=== PATIENT | female | born 1955 | race Caucasian/White ===

== ENCOUNTER 2024-10-02 08:16 | Day surgery (SDC) | payer MEDICARE, OTHER, SELFPAY ==
--- OUTSIDE RECORDS SUMMARY | 2024-09-26 23:59 | XMS_ITS | Continuity of Care Document ---
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 Name Role Phone Stephen TATUM, Cheyenne Gonzalez Primary Care Physician Encounter [facility] Date(s): 08/27/24 - 09/26/24 [facility] Care [address] [place] [address]- Encounter Type: Triage Allergies, Adverse Reactions, Alerts Substance Criticality Severity Reaction Reaction Severity Status ciprofloxacin unsure Active meloxicam effected kidney function Active Adhesive Bandage sin irritation/redness Active Immunizations Given and Recorded Vaccine Date Status Refusal Reason pneumococcal 23-valent vaccine 08/26/23 Given pneumococcal 23-valent vaccine 04/27/17 Given SARS-CoV-2 mRNA ([id number]) vax 1 11/01/22 Recorded SARS-CoV-2 mRNA ([id number]) vax 05/29/21 Recorded influenza virus vaccine, inactivated 11/01/22 Jim rded influenza virus vaccine, inactivated 10/28/21 Jim rded influenza virus vaccine, inactivated 11/09/20 Jim rded influenza virus vaccine, inactivated 11/01/19 Jim rded influenza virus vaccine, inactivated 10/23/18 Jim rded influenza virus vaccine, inactivated 10/21/17 Jim rded [id number] 12y+ bivalent booster vax 10/23/21 Recorded SARS-CoV-2 (COVID-19) mRNA BNT-162b2 vac 11/09/20 Recorded SARS-CoV-2 (COVID-19) mRNA BNT-162b2 vac 04/21/20 Recorded SARS-CoV-2 (COVID-19) mRNA BNT-162b2 vac 04/04/20 Recorded zoster vaccine, inactivated 09/29/17 Recorded zoster vaccine, inactivated 09/27/17 Recorded zoster vaccine, inactivated 05/11/17 Recorded tetanus/diphtheria/pertussis, acel(Tdap) 04/27/17 Given tetanus/diphtheria/pertussis, acel(Tdap) 08/29/07 Recorded Afluria (oldterm) 11/11/16 Given pneumococcal 13-valent vaccine 04/25/14 Recorded Zostavax (oldterm) 07/11/13 Given 1Result Comment: Dorota Patel done at pharmacy Medications ALPRAZolam 1 mg oral tablet 1 tablet = 1 mg, By Mouth, 2 times a day, for 30 days, dose decrease to what patient actually using, # 60 tablet, 6 Refills, Hard Stop 04/23/25 9:00:00 AM EDT, 09/25/24 9:00:00 AM EDT, Tablet, [facility]/pharmacy #[id number], 168, cm, 08/14/24 8:43:00 EDT, Height, 112.2, kg, 08/14/24 8:43:00 EDT, Dry Weight Start Date: 09/25/24 Stop Date: 04/23/25 Status: Ordered Quantity: 60.0 Unit: tablet Repeat number: 7 anastrozole 1 mg oral tablet 1 tablet, By Mouth, Daily, # 90 tablet, 2 Refills, Maintenance, 01/23/24 5:32:00 AM EST, [id number], 168, cm, 12/29/23 6:53:00 EST, Height, 124.6, kg, 12/29/23 6:53:00 EST, Dry Weight Start Date: 01/23/24 Status: Ordered Quantity: 90.0 Unit: tablet Repeat number: 1 Calcium 600 +D By Mouth, Daily, calcium 1200mg/Vit D3 1600 IU by mouth daily, 0 Refills, Maintenance, 05/15/24 3:43:00 PM EDT, Partial fill upon patient request if the prescription is for a schedule II opioid drug. Start Date: 05/15/24 Status: Ordered Repeat number: 1 Claritin 10 mg oral tablet 10 mg, 1, tablet, By Mouth, Daily, # 30 tablet, Refills 0, Maintenance, 07/13/23 10:04:00 AM EDT, Partial fill upon patient request if the prescription is for a schedule II opioid drug. Start Date: 07/13/23 Status: Ordered Quantity: 30.0 Unit: tablet Repeat number: 1 Compression Stockings surgical, knee high length 20-30 mm Hg, # 2 each, Refills 3, Tot. Refills 3, Maintenance, wear daily remove bedtime, 05/17/22 8:07:00 AM EDT, Supply Start Date: 05/17/22 Status: Ordered Quantity: 2.0 Unit: each Repeat number: 4 Compression Stockings surgical, thigh high length 20-30 mm Hg, # 2 each, Refills 3, Tot. Refills 3, Maintenance, wear daily remove bedtime, 05/17/22 8:11:00 AM EDT, Supply Start Date: 05/17/22 Status: Ordered Quantity: 2.0 Unit: each Repeat number: 4 Eliquis 5 mg oral tablet 1 tablet = 5 mg, By Mouth, 2 times a day, # 180 tablet, 3 Refills, Maintenance, 10/03/23 12:49:00 PMEDT, Tablet, [facility]/pharmacy #[id number], Partial fill upon patient request if the prescription is for a schedule II opioid drug., 167.7, cm, 09/09/23 14:37:00 EDT, Height, 120.2, kg, 09/06/23 8:56:00 EDT, Dry Weight Start Date: 10/03/23 Status: Ordered Quantity: 180.0 Unit: tablet Repeat number: 4 fluticasone 50 mcg/inh nasal spray See Instructions, USE 1 SPRAY IN EACH NOSTRIL TWICE A DAY, # 48 mL, 1 Refills, Maintenance, 09/21/24 11:18:00 AM EDT, [facility]/pharmacy #[id number], 90, USE 1 SPRAY IN EACH NOSTRIL TWICE A DAY, 168, cm, 08/14/24 8:43:00 EDT, Height, 112.2, kg, 08/14/24 8:43:00 EDT, Dry Weight Start Date: 09/21/24 Status: Ordered Quantity: 48.0 Unit: mL Repeat number: 2 Freestyle Lite Lancets See Instructions, # 100 each, Refills 2, Tot. Refills 2, Maintenance, Check blood sugar daily and PRN. Dx E11.9, 02/29/24 8:22:00 AM EST, Compound, 168, cm, 02/28/24 10:50:00 EST, Height, 124.6, kg, 12/29/23 6:53:00 EST, Dry Weight Start Date: 02/29/24 Status: Ordered Quantity: 100.0 Unit: each Repeat number: 3 Indications: Type 2 diabetes mellitus with hyperglycemia; Freestyle Lite Monitor See Instructions, # 1 each, Maintenance, Check blood sugar daily and PRN. Dx E11.9, 02/29/24 8:22:00AM EST, Compound, 168, cm, 02/28/24 10:50:00 EST, Height, 124.6, kg, 12/29/23 6:53:00 EST, Dry Weight Start Date: 02/29/24 Status: Ordered Quantity: 1.0 Unit: each Repeat number: 1 Indications: Type 2 diabetes mellitus with hyperglycemia; Freestyle Lite Test Strips See Instructions, # 100 each, Refills 2, Tot. Refills 2, Maintenance, Check blood sugar daily and PRN. Dx E11.9, 02/29/24 8:22:00 AM EST, Compound, 168, cm, 02/28/24 10:50:00 EST, Height, 124.6, kg, 12/29/23 6:53:00 EST, Dry Weight Start Date: 02/29/24 Status: Ordered Quantity: 100.0 Unit: each Repeat number: 3 Indications: Type 2 diabetes mellitus with hyperglycemia; hydrochlorothiazide 25 mg oral tablet 1, tablet, By Mouth, Daily, # 90 tablet, Refills 1, Maintenance, 04/12/24 11:43:00 AM EST, Route to Pharmacy Electronically, [id number], 168, cm, 03/29/24 12:40:00 EST, Height, 117.8, kg, 03/19/24 9:01:00 EST, Dry Weight Start Date: 04/12/24 Status: Ordered Quantity: 90.0 Unit: tablet Repeat number: 1 lisinopril 40 mg oral tablet 1 tablet, By Mouth, Daily, # 90 tablet, 1 Refills, Maintenance, 09/21/24 11:18:00 AM EDT, [facility]/pharmacy #[id number], 168, cm, 08/14/24 8:43:00 EDT, Height, 112.2, kg, 08/14/24 8:43:00 EDT, Dry Weight Start Date: 09/21/24 Status: Ordered Quantity: 90.0 Unit: tablet Repeat number: 2 melatonin 3 mg oral tablet, extended release 1 tablet = 3 mg, By Mouth, Daily at bedtime, PRN as needed for insomnia, 0 Refills, Maintenance, 05/15/24 3:45:00 PM EDT, ER Tablet, Partial fill upon patient request if the prescription is for a schedule II opioid drug. Start Date: 05/15/24 Status: Ordered Repeat number: 1 metFORMIN 500 mg oral tablet 2 tablet, By Mouth, 2 times a day, # 360 tablet, 1 Refills, Maintenance, 08/27/24 8:15:00 AM EDT, [facility]/pharmacy #[id number], 168, cm, 08/14/24 8:43:00 EDT, Height, 112.2, kg, 08/14/24 8:43:00 EDT, Dry Weight Start Date: 08/27/24 Status: Ordered Quantity: 360.0 Unit: tablet Repeat number: 2 Multivitamin By Mouth, Daily, 0 Refills, Maintenance, 07/13/23 10:04:00 AM EDT, Partial fill upon patient requestif the prescription is for a schedule II opioid drug. Start Date: 07/13/23 Status: Ordered Repeat number: 1 Ozempic 2 mg/1.5 mL (0.25 mg or 0.5 mg dose) subcutaneous solution = 0.5 mg, Subcutaneous Injection, Every week, rotate injection sites, # 4 each, 1 Refills, Maintenance, 06/06/24 2:12:00 PM EDT, Solution, [facility]/pharmacy #[id number], Partial fill upon patient request if the prescription is for a schedule II opioid drug., 0.5 mg Subcutaneous Injection Every week,Instr:rotate injection sites, 168, cm, 05/30/24 9:03:00 EDT, Height, 115.6, kg, 05/21/24 9:34:00 EDT, Dry Weight Start Date: 06/06/24 Status: Ordered Quantity: 4.0 Unit: each Repeat number: 2 Indications: Type 2 diabetes mellitus without complications; Ozempic 2 mg/3 mL (0.25 mg or 0.5 mg dose) subcutaneous solution See Instructions, 0.5 MG SUBCUTANEOUS INJECTION EVERY WEEK,INSTR:ROTATE INJECTION SITES, # 3 Unknown, 3 Refills, Maintenance, 08/31/24 12:07:00 PM EDT, [facility]/pharmacy #[id number], 168, cm, 08/14/24 8:43:00 EDT, Height, 112.2, kg, 08/14/24 8:43:00 EDT, Dry Weight Start Date: 08/31/24 Status: Ordered Quantity: 3.0 Unit: Unknown Repeat number: 4 pantoprazole 20 mg oral delayed release tablet 1 tablet, By Mouth, Daily, # 90 tablet, 1 Refills, Maintenance, 04/12/24 11:43:00 AM EST, 168, cm, 03/29/24 12:40:00 EST, Height, 117.8, kg, 03/19/24 9:01:00 EST, Dry Weight Start Date: 04/12/24 Status: Ordered Quantity: 90.0 Unit: tablet Repeat number: 1 Probiotic Formula By Mouth, Daily, 0 Refills, Maintenance, 07/19/23 12:07:00 PM EDT, Partial fill upon patient request if the prescription is for a schedule II opioid drug. Start Date: 07/19/23 Status: Ordered Repeat number: 1 psyllium - oral capsule 2 capsules, By Mouth, 2 times a day, 0 Refills, Maintenance, 07/13/23 10:05:00 AM EDT, Partial fill upon patient request if the prescription is for a schedule II opioid drug. Start Date: 07/13/23 Status: Ordered Repeat number: 1 sertraline 100 mg oral tablet 1 tablet = 100 mg, By Mouth, Daily, # 90 tablet, 1 Refills, Maintenance, 09/25/24 9:00:00 AM EDT, Tablet, [facility]/pharmacy #[id number], Partial fill upon patient request if the prescription is for a schedule IIopioid drug., 168, cm, 08/14/24 8:43:00 EDT, Height, 112.2, kg, 08/14/24 8:43:00 EDT, Dry Weight Start Date: 09/25/24 Stop Date: 03/24/25 Status: Ordered Quantity: 90.0 Unit: tablet Repeat number: 2 sertraline 25 mg oral tablet 1 tablet = 25 mg, By Mouth, Daily, # 90 tablet, 1 Refills, Maintenance, 09/25/24 9:00:00 AM EDT, Tablet, [facility]/pharmacy #[id number], Partial fill upon patient request if the prescription is for a schedule II opioid drug., 168, cm, 08/14/24 8:43:00 EDT, Height, 112.2, kg, 08/14/24 8:43:00 EDT, Dry Weight Start Date: 09/25/24 Stop Date: 03/24/25 Status: Ordered Quantity: 90.0 Unit: tablet Repeat number: 2 simvastatin 10 mg oral tablet 10 mg, 1, tablet, By Mouth, Daily at bedtime, # 30 tablet, Refills 11, Tot. Refills 11, Maintenance, 10/18/23 2:01:00 PM EDT, Route to Pharmacy Electronically, [facility]/pharmacy #[id number], Partial fill upon patient request if the prescription is for a schedule II opioid drug., 167.7, cm, 09/09/23 14:37:00 EDT, Height, 120.2, kg, 09/06/23 8:56:00 EDT, Dry Weight Start Date: 10/18/23 Status: Ordered Quantity: 30.0 Unit: tablet Repeat number: 12 traZODone 150 mg oral tablet 1 tablet = 150 mg, By Mouth, Daily at bedtime, # 90 tablet, 1 Refills, Maintenance, 09/25/24 9:03:00AM EDT, Tablet, [facility]/pharmacy #[id number], Partial fill upon patient request if the prescription is for a schedule II opioid drug., 168, cm, 08/14/24 8:43:00 EDT, Height, 112.2, kg, 08/14/24 8:43:00 EDT, Dry Weight Start Date: 09/25/24 Stop Date: 03/24/25 Status: Ordered Quantity: 90.0 Unit: tablet Repeat number: 2 Tylenol Arthritis Caplet 650 mg oral tablet, extended release 2 tablet = 1,300 mg, By Mouth, Every 8 hours, 0 Refills, Maintenance, 05/08/14 10:46:15 AM EDT Start Date: 05/08/14 Status: Ordered Repeat number: 1 verapamil 240 mg/12 hours oral tablet, extended release 1 tablet = 240 mg, By Mouth, Daily in AM, # 90 tablet, 1 Refills, Soft Stop, 04/12/24 11:45:00 PM EST, [id number], 168, cm, 03/29/24 12:40:00 EST, Height, 117.8, kg, 03/19/24 9:01:00 EST, Dry Weight Start Date: 04/12/24 Stop Date: 10/09/24 Status: Ordered Quantity: 90.0 Unit: tablet Repeat number: 2 Problem List Condition Confirmation Course Effective Dates Status H ealth Status Informant Allergic rhinitis Confirmed Active Anisocoria Confirmed Active Anxiety Confirmed Active Type 2 diabetes mellitus with both eyes affected by mild nonproliferative retinopathy without macular edema, without long-term current use of insulin Confirmed 06/12/24 Active Carcinoma of upper-outer quadrant of left breast in female, estrogen receptor negative Confirmed Active Breast disease Confirmed Active Diverticulitis Confirmed Active Chronic GERD Confirmed Active Heart murmur Confirmed Active Hot flash due to medication Confirmed Active High cholesterol Confirmed Active Hyperlipidemia Confirmed Active High blood pressure Confirmed Active Hypertension Confirmed Active Malignant neoplasm of upper-outer quadrant of left breast in female, estrogen receptor positive Confirmed Active Mixed anxiety and depressive disorder Confirmed Active Obesity (BMI 35.0-39.9 without comorbidity) Confirmed Active Osteoarthritis of left knee Confirmed Active Well woman exam with routine gynecological exam Confirmed Active Severe obesity (BMI 35.0-39.9) with comorbidity Confirmed Active Uterine fibroid Confirmed Active Social History Social History Type Response Smoking Status Former smoker, quit more than 30 days ago; Type: Cigarettes; Tobacco use times per day: 1 PPD; Started at age: 17; Stopped at age: 44; entered on: 12/04/18 Sex Sex Representation Female (finding) Implantable Device List Procedure Provider Procedure Date Device Type Site Repair Hernia Ventral Laparoscopic Jerri Larkin DO 05/21/24 Unknown Abdomen Device Identifier Serial Number Lot or Batch Number Manufacturing Date Expiration Date Distinct Identification Code MRI Safety Implantable Status Assigning Authority Unknown Unknown [id number] Unknown 10/11/25 Unknown Unknown Active Unknown Patient Care team information Care Team Personnel Name: Sonam Nation [place] Position: [facility] Office Staff Member Role: Primary Care Nurse Name: Mercedez Rincon [place] Position: [facility] Office Staff Member Role: Primary Care Nurse Name: Cheyenne Mitchell NP Position: [facility] Associate Professional Member Role: PCP Address: [address] [place] [id number]: Care Team Related Persons Name: STACY KAPOOR Name: AURE SABILLON Insurance Providers Guarantor name: KIMBERLY SABILLON Health Plan Information #: 1 Payer: MEDICARE B Payer Identifier: MARIBELL Member Number: [id number] Group Number: [id number] Subscriber Identifier: [id number] Relationship to Subscriber: self Coverage Type: NA Coverage Verification Date: Telecom: Address: Health Plan Information #: 2 Payer: [employer] Payer Identifier: MARIBELL Member Number: [id number] Group Number: [id number] Subscriber Identifier: [id number] Relationship to Subscriber: self Coverage Type: Medicare Other Coverage Verification Date: Telecom: Address:
--- NOTE | 2024-10-01 13:07 | HO.ANESPROP2 ---
Documented by User: Blanche Harris NP 10/01/24 13:07 HPI - Anesthesia Eval Consult details Narrative: 68 yr old female for upper endoscopy, colonoscopy PMF Past Medical History Medical History GERD (gastroesophageal reflux disease) Depression Anxiety Osteoarthritis Hyperlipemia Diabetes HTN (hypertension) Surgical History Surgical History History of carpal tunnel release Hx of colonoscopy H/O esophagogastroduodenoscopy Social History Social History Patient Tobacco Use Status: Never used Tobacco Use of substances other than those prescribed or required for medical reasons: No Advance Directives: No Advance Directives Information Provided: Yes Meds Allergies Allergy/AdvReac Type Severity Reaction Status Date / Time meloxicam Allergy Unknown Verified 11/29/22 08:04 prednisone Allergy Unknown Verified 11/29/22 08:04 Home Medications ?Medication ?Instructions ?Recorded ?Confirmed ?Last Taken ?Type alprazolam 1 mg tablet 1 mg PO BID PRN Anxiety 11/29/22 11/29/22 Unknown History hydrochlorothiazide 25 mg tablet 25 mg PO DAILY 11/29/22 11/29/22 Unknown History lisinopril 40 mg tablet 40 mg PO DAILY 11/29/22 11/29/22 Unknown History metformin 500 mg tablet 1,000 mg PO BID 11/29/22 11/29/22 Unknown History pantoprazole 20 mg tablet,delayed 20 mg PO DAILY 11/29/22 11/29/22 10/02/24 07:00 History release sertraline 100 mg tablet 100 mg PO DAILY 11/29/22 11/29/22 Unknown History simvastatin 10 mg tablet 10 mg PO BEDTIME 11/29/22 11/29/22 Unknown History trazodone 150 mg tablet 150 mg PO BEDTIME 11/29/22 11/29/22 Unknown History verapamil 240 mg tablet,extended 240 mg PO DAILY 11/29/22 11/29/22 Unknown History release anastrozole 1 mg tablet 1 mg PO DAILY 10/02/24 10/02/24 Unknown History apixaban 5 mg tablet (Eliquis) 5 mg PO BID 10/02/24 10/02/24 09/28/24 08:00 History fluticasone propionate 50 1 spray intranasal BID 10/02/24 10/02/24 Unknown History mcg/actuation nasal spray,suspension semaglutide 0.25 mg or 0.5 mg (2 0.5 mg subcut QWEEK 10/02/24 10/02/24 09/21/24 08:00 History mg/3 mL) subcutaneous pen injector (Ozempic) Documented by User: Yulisa Gibbons MD 10/02/24 10:59 [facility] Past Medical History Medical History GERD (gastroesophageal reflux disease) Depression Anxiety Osteoarthritis Hyperlipemia Diabetes HTN (hypertension) Surgical History Surgical History History of carpal tunnel release Hx of colonoscopy H/O esophagogastroduodenoscopy History of Problems with Anesthesia: No Social History Social History Patient Tobacco Use Status: Never used Tobacco Use of substances other than those prescribed or required for medical reasons: No Advance Directives: No Advance Directives Information Provided: Yes Meds Allergies Allergy/AdvReac Type Severity Reaction Status Date / Time meloxicam Allergy Unknown Verified 11/29/22 08:04 prednisone Allergy Unknown Verified 11/29/22 08:04 Home Medications ?Medication ?Instructions ?Recorded ?Confirmed ?Last Taken ?Type alprazolam 1 mg tablet 1 mg PO BID PRN Anxiety 11/29/22 11/29/22 Unknown History hydrochlorothiazide 25 mg tablet 25 mg PO DAILY 11/29/22 11/29/22 Unknown History lisinopril 40 mg tablet 40 mg PO DAILY 11/29/22 11/29/22 Unknown History metformin 500 mg tablet 1,000 mg PO BID 11/29/22 11/29/22 Unknown History pantoprazole 20 mg tablet,delayed 20 mg PO DAILY 11/29/22 11/29/22 10/02/24 07:00 History release sertraline 100 mg tablet 100 mg PO DAILY 11/29/22 11/29/22 Unknown History simvastatin 10 mg tablet 10 mg PO BEDTIME 11/29/22 11/29/22 Unknown History trazodone 150 mg tablet 150 mg PO BEDTIME 11/29/22 11/29/22 Unknown History verapamil 240 mg tablet,extended 240 mg PO DAILY 11/29/22 11/29/22 Unknown History release anastrozole 1 mg tablet 1 mg PO DAILY 10/02/24 10/02/24 Unknown History apixaban 5 mg tablet (Eliquis) 5 mg PO BID 10/02/24 10/02/24 09/28/24 08:00 History fluticasone propionate 50 1 spray intranasal BID 10/02/24 10/02/24 Unknown History mcg/actuation nasal spray,suspension semaglutide 0.25 mg or 0.5 mg (2 0.5 mg subcut QWEEK 10/02/24 10/02/24 09/21/24 08:00 History mg/3 mL) subcutaneous pen injector (Ozempic) Exam Airway Mallampati Class: III TM Dist: >3cm Neck ROM: Limited Loose/Missing/Broken Teeth: No Heart: RRR Lungs: CTA Assessment and Plan Assessment Anesthesia Assessment: Anesthesia Plan Discussed and Chart Reviewed Final Anesthetic Review History of Problems with Anesthesia: No NPO: Yes ASA Class: III Final Preanesthetic Review: Meds/Allgs Chart Reviewed, Consent Obtained/Reviewed and Anes Risks/Benef Reviewed Patient Risk: Intermediate Procedure Risk: Intermediate Anesthetic Plan Anesthetic Plan: MAC: Disposition: Standard PACU
[2024-10-02 08:40] VITALS: BMI 39.5
[2024-10-02 09:03] VITALS: BP 179/78; PULSE 78; RESP 20; TEMP 37.1; O2SAT 99
[2024-10-02] MEDS: Lactated Ringers 1,000 ML 100 ML IVCONT (09:04)
--- NOTE | 2024-10-02 10:29 | MHC.SHP ---
Pre-Procedural Eval Section A - 24 Hr Update-Section A only Date of Service: 10/02/24 The patient is an INPATIENT: No Changes since office visit: No Cold of Flu in the past 2 weeks, No New Medical Problems, No Changes in Medication and No Patient answered all questions The patient has been examined within 24 hours of the surgical procedure. The History & Physical has been completed within 30 days and I have reviewed it.: Yes Section B - Complete if H&P > 30 days Chief Complaint: screening,gerd, Allergies: Allergies Allergy/AdvReac Type Severity Reaction Status Date / Time meloxicam Allergy Unknown Verified 11/29/22 08:04 prednisone Allergy Unknown Verified 11/29/22 08:04 Plan I have reviewed the history and physical and performed a pertinent physical examination on my patient. No changes have occurred unless specified. Time Spent With Patient Time: Total time managing care of this patient today ____ minutes.
[2024-10-02 10:35] LABS: Glucose, Whole Blood 108 mg/dL (60-115)
[2024-10-02 11:17] VITALS: BP 132/66; PULSE 68; RESP 18; TEMP 36.6; O2SAT 96
[2024-10-02 11:32] VITALS: BP 150/57; PULSE 65; RESP 18; TEMP 36.9; O2SAT 99
--- NOTE | 2024-10-02 11:46 | OP_ITS ---
DATE OF SERVICE: 10/02/2024 SURGEON: Darrick Looney MD INDICATIONS: 1. Gastroesophageal reflux disease. 2. Colon cancer screening. PREOPERATIVE DIAGNOSIS: POSTOPERATIVE DIAGNOSIS: PROCEDURE PERFORMED: ESTIMATED BLOOD LOSS: COMPLICATIONS: ANESTHESIA: ASSISTANTS: SPECIMENS: PROCEDURES: Upper endoscopy with biopsy, colonoscopy to the terminal ileum with snare polypectomy. MEDICATIONS: Monitored anesthesia care. DESCRIPTION OF PROCEDURE: A history and physical were performed. The risks and benefits of the procedure were explained to the patient. Informed consent was obtained. The patient was placed in the left lateral decubitus position. The Olympus video gastroscope was introduced into the esophagus, stomach, and duodenum. Examination was performed. The scope was removed. She was repositioned for colonoscopy. A digital rectal exam was performed and was found to be normal. The Olympus pediatric video colonoscope was introduced into the rectum and advanced to the cecum. The cecum was identified by transillumination, palpation, and identification of ileocecal valve. Examination was performed. The scope was removed. She tolerated both procedures well and was taken to recovery in stable condition. FINDINGS: Upper endoscopy: 1. Esophagus: The esophagus was normal. There was no esophagitis. Biopsies were obtained from the EG junction. 2. Stomach: The stomach showed linear streaks of erythema consistent with gastritis. Biopsies were obtained from the antrum. 3. Duodenum: The bulb and 2nd portion were normal. Colonoscopy: The terminal ileum was briefly examined and appeared normal. The visualized colonic mucosa was normal. The quality of the prep was good. Single polyp in the right colon measuring approximately 8 mm was identified and removed with hot snare. No other polyps were identified. There was mild sigmoid diverticulosis. Retroflexed examination was normal. There were small internal hemorrhoids. IMPRESSION: 1. Gastroesophageal reflux disease. 2. Colon polyp. RECOMMENDATION: Follow up the biopsy results. MD LIA Mccray/MARTHA / [id number]
== END 2024-10-02 12:03 | disposition home or self-care (01) ==
PROVIDERS: PCP Nurse Practitioner Family; Visit Provider Internal Medicine Gastroenterology
PROC: (CPT 45385; principal; 2024-10-02 10:10)
DX: Z12.11 Encounter for screening for malignant neoplasm of colon (principal); K63.5 Polyp of colon; K63.89 Other specified diseases of intestine; K57.30 Diverticulosis of large intestine without perforation or abscess without bleeding; K64.8 Other hemorrhoids; K21.9 Gastro-esophageal reflux disease without esophagitis; E11.9 Type 2 diabetes mellitus without complications; I10 Essential (primary) hypertension; E78.5 Hyperlipidemia, unspecified; C50.912 Malignant neoplasm of unspecified site of left female breast; Z79.899 Other long term (current) drug therapy; Z79.84 Long term (current) use of oral hypoglycemic drugs; Z79.02 Long term (current) use of antithrombotics/antiplatelets; Z79.01 Long term (current) use of anticoagulants
CPT/HCPCS: 45385; 43239; 82947; 88305; 88342; J2003; J2704